=== PATIENT | female | born 1940 | race Caucasian/White ===

== ENCOUNTER → 2018-02-13 | Outpatient (CLI) | payer OTHER ==
[~2018-02-13] MED LIST: ALLEGRA-D 12 H1 EAC2 PO; ASPIR 8181 MG PO; FISH OIL 1,001000 M1 PO; GABAPENTIN 100100 MG PO; LEVAQUIN 500 M500 MG PO; LOVASTATIN 20 M20 MG PO; NORVASC10 MG PO; OMEPRAZOLE10 MG PO; PRILOSEC20 MG PO; THERA-M CAPLET1 EAC1 PO; VITAMIN E400 UNIT PO; VITAMINC500 PO; ZETIA10 MG PO
== END ==
LOC: M.RAD 12:41
DX: Z12.31 Encounter for screening mammogram for malignant neoplasm of breast (principal)

== ENCOUNTER → 2018-08-13 | Outpatient (CLI) | payer OTHER | LOC: M.ULTRA 13:15 | DX: E11.9 Type 2 diabetes mellitus without complications (principal); I10 Essential (primary) hypertension; G45.9 Transient cerebral ischemic attack, unspecified; E78.00 Pure hypercholesterolemia, unspecified ==

== ENCOUNTER → 2019-02-16 | Outpatient (CLI) | payer OTHER | LOC: M.RAD 10:37 | DX: Z12.31 Encounter for screening mammogram for malignant neoplasm of breast (principal); M47.814 Spondylosis without myelopathy or radiculopathy, thoracic region; M47.812 Spondylosis without myelopathy or radiculopathy, cervical region; M81.0 Age-related osteoporosis without current pathological fracture; M25.78 Osteophyte, vertebrae; M25.852 Other specified joint disorders, left hip; R07.89 Other chest pain; G89.29 Other chronic pain; Z88.0 Allergy status to penicillin; Z88.8 Allergy status to other drugs, medicaments and biological substances ==

== ENCOUNTER → 2020-03-18 | Outpatient (CLI) | payer OTHER ==
[~2020-03-18] MED LIST changes: +COZAAR 25 MG TA25 M1 PO
== END ==
LOC: M.RAD 11:37
PROVIDERS: ATTEND Internal Medicine
DX: Z12.31 Encounter for screening mammogram for malignant neoplasm of breast (principal)

== ENCOUNTER → 2021-01-03 | Outpatient (CLI) | payer OTHER | LOC: M.RAD 15:14 | PROVIDERS: ATTEND Internal Medicine | DX: M47.814 Spondylosis without myelopathy or radiculopathy, thoracic region (principal); M54.6 Pain in thoracic spine ==

== ENCOUNTER → 2021-05-02 | Outpatient (CLI) | payer OTHER | LOC: M.RAD 09:58 | PROVIDERS: ATTEND Internal Medicine | DX: Z12.31 Encounter for screening mammogram for malignant neoplasm of breast (principal) ==